=== PATIENT | male | born 2005 | race Caucasian/White ===

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

== ENCOUNTER 2025-04-12 15:27 | Emergency (ER) | payer MEDICAID ==
[~2025-04-12] VITALS: Ht 165.1 cm; Wt 43.2 kg
[2025-04-12 15:29] VITALS: BP 128/93
--- NOTE | 2025-04-12 15:38 | Physician Documentation ---
History of Present Illness ~ Chief Complaint: Medical Clearance Stated Complaint: MED CLEARANCE Time Seen by MD: 15:30 Source: patient Mode of Arrival: POV Exam Limitations: no limitations HPI 19 y/o male BIB police for clearance for [facility]. Patient was arrested due to hitting drive through at [employer]. Minimal damage but [employer] report due to suspected DUI it is required for medical clearance prior to going to [facility]. Patient is lying on gurney in handcuffs and his upper body is jerking along with his legs, almost hitting one of the officers while the officer was asking him questions. Patient states he is in the middle of "seizing" due to "epilepsy." Patient is conscious and communicating while having his seizure. Patient denies chest pain, SOB, abdominal pain. Tetanus within 5 years?: No Medication Reconciliation Allergies: Coded Allergies: No Known Allergies (Unverified , 12/31/22) Scheduled Famotidine (Pepcid), 1 TAB PO Q12H Past Medical History Past Medical History: No Pertinent History, Anxiety Past Surgical History: no surgical history Alcohol Use: Heavy Lives with: Family Lives In: Home Occupation: employed Review of Systems All Other Systems at this time: Reviewed and Negative Physical Exam Vital Signs: Heart Rate: 148, Respiratory Rate: 17, BP: 128/93, Pulse Oximetry: 96, Weight: 43.180 Oxygen Flow Rate: 0 Physical Exam GENERAL: Alert, no acute distress. HEENT: NCAT, EOMI, PERRL, normal oropharynx, moist oral mucosa. NECK: Supple, trachea midline. CARDIAC: Regular rhythm, elevated rate, no murmurs, rubs, or gallops. Equal distal pulses. No lower extremity edema, cap refill less than 2 seconds. RESPIRATORY: Equal breath sounds, clear to auscultation bilaterally, no respiratory distress. GASTROINTESTINAL: Non distended, soft, nontender, No guarding or rebound. MUSCULOSKELETAL: Normal range of motion, nontender, no swelling. Normal gait. NEUROLOGICAL: Awake, alert, and oriented x 3. Patient is talkative throughout exam in talking while he is saying that he is seizing. His upper body and legs are jerking. Patient almost hit one of the officers with his leg when he was jerking on the gurney. SKIN: Warm/dry, no pallor, no rash. PSYCH: Alert and appropriate. Affect congruent with mood. Speech is clear. Good eye contact. Progress Results/Orders Results/Orders Vital Signs 04/12/25 04/12/25 15:29 15:39 Pulse 148 120 Resp 17 18 B/P (MAP) 128/93 Pulse Ox 96 98 O2 Flow Rate 0 0 Medical Decision Making Differential Dx:Considerations: Include: Intoxication-Alcohol, Intoxication- Other drug, Personality disorder, Substance abuse disorder, Acute delirium, Closed head injury, Cervical spine injury, Skull fracture, Fracture(s), Abrasion, Contusion, Foreign body, Hematoma, Laceration, Alcohol withdrawl syndrom, Encephalopathy, Hepatitis, Medically stable Departure Time of Disposition: 15:38 Disposition: 01 HOME / SELF CARE / HOMELESS Impression: Primary Impression: Medical clearance for incarceration Condition: Stable Discharge Instructions: Medical Screening Exam Additional Instructions: PATIENT HAS BEEN EVALUATED AND IS MEDICALLY CLEARED FOR ALF Referrals: NO PRIMARY CARE PROVIDER (PCP) Education Educated: Patient Educated regarding: diagnosis, treatment, need for follow up Signature Scribe Signature: x Attestation: SVETLANA Pulido April 12, 2025 15:38
[2025-04-12 15:39] VITALS: PULSE 120; RESP 18; O2SAT 98
== END 2025-04-12 15:48 | disposition home or self-care (01) ==
LOC: EEVIPCON 15:28 → ER 15:28
DX: Z02.89 Encounter for other administrative examinations (principal); G40.909 Epilepsy, unspecified, not intractable, without status epilepticus; Z79.899 Other long term (current) drug therapy
CPT/HCPCS: 99283

== ENCOUNTER 2025-04-12 17:45 | Inpatient (IN) | payer MEDICAID ==
[~2025-04-12] VITALS: Ht 172.7 cm; Wt 43.0 kg
[2025-04-12] MEDS: naloxone 2mg/2ml inj IV STA (17:57)
--- NOTE | 2025-04-12 18:32 | RADIOLOGY REPORT ---
CHEST RADIOGRAPH Indication: aloc Technique: Single frontal view of the chest was obtained Comparison: None FINDINGS: Lines and Tubes: None Lungs: No focal consolidation. Pleura: No effusion. No pneumothorax. Cardiomediastinal contours: Unremarkable Bones: No acute osseous abnormality. IMPRESSION: 1. No acute cardiopulmonary disease.
[2025-04-12] MEDS: normal saline 1000ML IV soln IVB ONE ×2 (18:35→18:36)
[2025-04-12 18:56] LABS: BASOPHILS # (AUTO) 0.1 X10'3 (0-0.2); BASOPHILS % (AUTO) 0.6 % (0-1); EOSINOPHILS % (AUTO) 0.4 % (0-6); HEMATOCRIT 28.7 % (42.0-52.0); HEMOGLOBIN 9.9 g/dl (14.0-17.9); LYMPHOCYTES # (AUTO) 2.6 X10'3 (1.1-4.8); LYMPHOCYTES % (AUTO) 24.4 % (21-51); MEAN CORPUSCULAR HEMOGLOBIN 30.4 PG (27.0-31.0); MEAN CORPUSCULAR HGB CONC 34.6 g/dL (33.0-36.5); MEAN CORPUSCULAR VOLUME 87.7 FL (78-98); MEAN PLATELET VOLUME 7.6 FL (7.4-10.4); MONOCYTES # (AUTO) 0.6 X10'3 (0-0.9); NEUTROPHILS # (AUTO) 7.2 X10'3 (1.8-7.7); NEUTROPHILS % (AUTO) 68.6 % (42-75); PLATELET COUNT 239 X10'3 (140-440); RED BLOOD COUNT 3.27 X10'6 (4.70-6.10); WHITE BLOOD COUNT 10.5 X10'3 (4.5-11.0)
[2025-04-12 19:06] LABS: ALBUMIN 1.9 G/DL (3.4-5.0); ANION GAP 12 (8-16); BLOOD UREA NITROGEN 14 MG/DL (7-18); BUN/CREATININE RATIO 24.1 (10.0-20.0); CHLORIDE 121 MMOL/L (99-107); CREATININE 0.58 MG/DL (0.60-1.10); GLUCOSE 62 MG/DL (70-104); SODIUM 150 MMOL/L (135-145); eCRCL 124 ML/MIN; eGFR > 90 ML/MIN
[2025-04-12 19:17] LABS: ETHANOL < 10 MG/DL (<10)
[2025-04-12 19:19] LABS: CALCIUM 5.3 MG/DL (8.5-10.1); POTASSIUM 1.8 MMOL/L (3.5-5.1)
--- NOTE | 2025-04-12 19:23 | ELECTROCARDIOGRAPH REPORT ---
[facility] Test Date: 2025-04-12 Test Time: 17:50:28 Pat Name: DOMENICO SANDERS Department: EMERGENCY ROOM Patient ID: [id number] Room: ED 4 Gender: M Health Specialist: PARISH : 2005 Requested By: SVETLANA SHEPPARD Order Number: [id number] Reading MD: Dr. Oliverio Workman Measurements Intervals [place] Rate: 106 P: 83 RI: 94 QRS: 62 QRSD: 79 T: 68 QT: 321 QTc: 427 Interpretive Statements Sinus tachycardia RSR' in V1 or V2, probably normal variant Electronically Signed On 04-12-2025 21:01:[address] Oliverio Workman Please click the below link to view image of tracing.
--- NOTE | 2025-04-12 19:48 | Physician Documentation ---
History of Present Illness ~ Chief Complaint: Overdose Stated Complaint: ALTERED Time Seen by MD: 17:50 OK to notify your PCP?: Yes Primary Medical Doctor: NONE Source: police, EMS Mode of Arrival: EMS Exam Limitations: clinical condition HPI 19-year-old male who was brought in by EMS from the longterm after being cleared here just about 2 hours ago. Patient arrived at the longterm and was reportedly giving officers a "hard time" and the nurse from the longterm ended up giving Valium 10 mg po. Shortly after giving the patient Valium 10 mg p.o. the patient became unresponsive only to sternal rub. Patient is breathing on his own but unable to provide history. Officers where told by nurse at longterm that patient told the nurse at the longterm that he had 13 or 23 pills of gabapentin. Officers state they doubt this is the case because there where no pill bottles in the car. Patient was also extremely agitated when officers brought him in a few hours ago along with being tachycardic at 120 but when arrived to the longterm it was reportedly 171 per triage nurse from the longterm. Medication Reconciliation Allergies: Coded Allergies: No Known Allergies (Unverified , 12/31/22) Scheduled Famotidine (Pepcid), 1 TAB PO Q12H Past Medical History Past Medical History: No Pertinent History, Anxiety Past Surgical History: no surgical history Alcohol Use: Heavy Lives with: Family Lives In: Home Occupation: employed Review of Systems All Other Systems at this time: Reviewed and Negative Physical Exam Vital Signs: Temperature: 97.8, Source: Temporal, Heart Rate: 103, Respiratory Rate: 14, BP: 107/59, Pulse Oximetry: 99, Weight: 43.100 Oxygen Flow Rate: 0 Physical Exam GENERAL: NONRESPONSIVE BUT BREATHING ON HIS OWN HEENT: NCAT, PINPOINT PUPILS, normal oropharynx, DRY oral mucosa. NECK: Supple, trachea midline. CARDIAC: Regular rhythm, ELEVATED RATE, no murmurs, rubs, or gallops. PV: Equal distal pulses. No lower extremity edema, cap refill less than 2 seconds. RESPIRATORY: Equal breath sounds, clear to auscultation bilaterally, no respiratory distress. GASTROINTESTINAL: Non distended, soft, nontender, No guarding or rebound. MUSCULOSKELETAL: ABRASION ON CHEST/STERNUM FROM STERNUM RUB REPORTEDLY DONE AT [facility], Normal range of motion, nontender, no swelling. Normal gait. NEUROLOGICAL: ONLY AROUSABLE TO STERNAL RUB. SKIN: Warm/dry, no pallor, no rash. PSYCH: UNABLE TO ASSESS. Progress Progress Note The very real possibility of a deterioration of this patient's condition required the highest level of my preparedness for sudden, emergent intervention. I provided critical care services, which included medication orders, frequent reevaluations of the patient's condition and response to treatment, ordering and reviewing test results, and discussing the case with various consultants. Excludes time spent performing separately billable procedures. The critical care time associated with the care of the patient was: 30minutes. Results/Orders Results/Orders Orders - ROSARIO SHEPPARD Chest,Single View (04/12/25 18:05) Ethanol (04/12/25 18:05) Drug Screen, Urine (04/12/25 18:05) BMP (04/12/25 18:05) CAION (04/12/25 19:21) Magnesium Sulf-Water 2g/50ml (Magnesium (04/12/25 19:25) Observation Status Start (04/12/25 19:23) Potassium Cl 40meq/1/2ns 520ml ([place] (04/12/25 19:25) Observation Status Start (04/12/25 19:23) * Blood Glucose Assessment * ACHS (04/12/25 19:56) CK (04/12/25 18:25) Liver Panel (04/12/25 18:25) MG (04/12/25 18:25) General Nursing Order (04/12/25 20:01) Completed Orders - ROSARIO SHEPPARD Normal Saline 1000ml (Sodium Chloride 10 (04/12/25 17:50) Naloxone 2mg/2ml Inj (Narcan 2mg/2ml Inj (04/12/25 17:52) Cbc/Diff (04/12/25 18:05) Chest,Single View (04/12/25 18:05) Normal Saline 1000ml (Sodium Chloride 10 (04/12/25 18:05) Stat Ekg (04/12/25 19:21) Medications Received in ER Medications (Trade) Dose Ordered Sig/Tisha Route PRN Reason Start Time Stop Time Status Last Admin Dose Admin (sodium chloride 1000ml IV soln) 1,000 ml ONCE ONCE IVB 5/23/25 17:50 04/12/25 17:51 DC 04/12/25 18:35 1,000 ML (Narcan 2mg/2ml inj) 2 mg ONCE STAT IV 04/12/25 17:52 04/12/25 17:55 DC 04/12/25 17:57 2 MG (sodium chloride 1000ml IV soln) 1,000 ml ONCE ONCE IVB 04/12/25 18:05 04/12/25 18:11 DC 04/12/25 18:36 1,000 ML Potassium Chloride 520 ml @ 130 mls/hr ONCE ONCE IV 04/12/25 19:25 04/12/25 23:24 04/12/25 19:53 130 MLS/HR Vital Signs 04/12/25 04/12/25 04/12/25 17:49 18:00 18:11 Temp 97.8 Pulse 107 103 Resp 17 14 B/P (MAP) 97/58 107/59 (75) Pulse Ox 97 99 O2 Flow Rate 0 0 Laboratory Tests Test 04/12/25 18:25 04/12/25 19:47 White Blood Count 10.5 Red Blood Count 3.27 L Hemoglobin 9.9 L Hematocrit 28.7 L Mean Corpuscular Volume 87.7 Mean Corpuscular Hemoglobin 30.4 Mean Corpuscular Hemoglobin Concent 34.6 Red Cell Distribution Width 15.0 H Platelet Count 239 Mean Platelet Volume 7.6 Neutrophils (%) (Auto) 68.6 Lymphocytes (%) (Auto) 24.4 Monocytes (%) (Auto) 6.0 Eosinophils (%) (Auto) 0.4 Basophils (%) (Auto) 0.6 Neutrophils # (Auto) 7.2 Lymphocytes # (Auto) 2.6 Monocytes # (Auto) 0.6 Eosinophils # (Auto) 0.0 Basophils # (Auto) 0.1 CBC Comment Sodium Level 150 H Potassium Level 1.8 *L Chloride Level 121 H Carbon Dioxide Level 17.0 L Anion Gap 12 Blood Urea Nitrogen 14 Creatinine 0.58 L Estimated GFR/1.73 m2 > 90 BUN/Creatinine Ratio 24.1 H Glucose Level 62 L Calcium Level 5.3 *L Albumin 1.9 L Chemistry Comments Ethyl Alcohol Level < 10 Drug Screen Comment Medical Decision Making Differential Dx:Considerations: Include: Alcohol abuse, Anxiety, Bipolar disorder, Conversion disorder, Delirium, Depression, Drug Overdose-Accidental, Drug Overdose-Intentional, Encephalopathy, Hallucinations, Homicidal, Liver failure, Panic disorder, Personality disorder, Renal failure, Respiratory failure, Schizophrenia, Substance abuse, Suicidal attempt, Suidical gesture Additional Comment EKG DID NOT SHOW ANY U WAVES OR QT PROLONGATION WORKING CURRENT DIFFERENTIAL IS OVERDOSE FROM GABAPENTIN WHICH PUT PATIENT INTO RHABDOMYOLYSIS AND THE HYPOKALEMIA IS A RESULT OF THIS. PATIENT IS PROTECTING HIS AIRWAY, OXYGEN SATRUATION REMAINING IN THE 90'S ON 2LITERS [place] Departure Admitted to Inpatient Unit: to hospitalist Impression: Primary Impression: Altered level of consciousness Additional Impressions: Hypokalemia Gabapentin overdose Qualified Codes: T42.6X4A - Poisoning by other antiepileptic and sedative- hypnotic drugs, undetermined, initial encounter Hypocalcemia Tachycardia Condition: Fair Referrals: NO PRIMARY CARE PROVIDER (PCP) Education Educated regarding: diagnosis, treatment, need for follow up Signature Scribe Signature: x Attestation: The note accurately reflects work and decisions made by me.Rosario MOORE 04/12/25 19:58 handed off to my supervising MD at 20:00 ROSARIO SHEPPARD April 12, 2025 19:48
[2025-04-12] MEDS: potassium Cl 40MEQ/1/2NS 520ml 520 ML IV ONE (19:53)
[2025-04-12 20:11] LABS: BILIRUBIN,DIRECT 0.2 MG/DL (0-0.3); BILIRUBIN,TOTAL 0.5 MG/DL (0.1-1.0); CREATINE KINASE 232 U/L (39-308); TOTAL PROTEIN 3.8 G/DL (6.4-8.2)
[2025-04-12 20:12] LABS: ALANINE AMINOTRANSFERASE 15 U/L (12-78); ALKALINE PHOSPHATASE 42 IU/L (20-180); ASPARTATE AMINO TRANSFERASE 20 U/L (10-37)
[2025-04-12] MEDS: magnesium sulf-water 2g/50mL 50 ML IV SCH (20:13)
[2025-04-12 20:15] LABS: URINE AMPHETAMINE SCREEN POSITIVE (Neg); URINE BARBITUATE SCREEN NEGATIVE (Neg); URINE BENZODIAZEPINES SCREEN POSITIVE (Neg); URINE CANNABINOID SCREEN POSITIVE (Neg); URINE COCAINE SCREEN POSITIVE (Neg); URINE METHADONE SCREEN NEGATIVE (Neg); URINE OPIATE SCREEN NEGATIVE (Neg); URINE PHENCYCLIDINE SCREEN NEGATIVE (Neg)
[2025-04-12 20:22] LABS: MAGNESIUM 0.8 MG/DL (1.5-2.4)
[2025-04-12] MEDS ORDERED: potassium Cl 20 mEq SR tablet PO PRN ×2 (20:35)
[2025-04-12] MEDS ORDERED: magnesium hydroxide 30ml (MOM) UD suspension PO PRN (20:35)
[2025-04-12] MEDS ORDERED: albuterol 2.5 MG/3 ML nebule NEB PRN (20:35)
[2025-04-12] MEDS ORDERED: mag hydrox/Alum hydrox/simeth 30ml oral suspension PO PRN (20:35)
[2025-04-12] MEDS ORDERED: ondansetron/PF 4mg/2ml inj IV PRN (20:35)
[2025-04-12] MEDS ORDERED: acetaminophen 325mg tablet PO PRN (20:35)
[2025-04-12] MEDS ORDERED: metoclopramide 5 mg/ml inj IV PRN (20:35)
[2025-04-12] MEDS ORDERED: bisacodyl 10mg suppository rectal RC PRN (20:35)
[2025-04-12] MEDS ORDERED: magnesium sulf-water 2g/50mL 50 ML IV PRN (20:35)
[2025-04-12] MEDS ORDERED: potassium Cl 40MEQ/1/2NS 520ml 520 ML IV PRN (20:35)
--- NOTE | 2025-04-12 21:08 | HISTORY AND PHYSICAL-Residence ---
History & Physical Providers to CC Resident Creating Document: COLUMBA AJ, RES ~ History of Present Illness Primary Medical Doctor: NONE Reason for Admit\\Complaint: altered level of consciouness History of Present Illness This is a 19-year-old male with history of methamphetamine abuse, cocaine abuse, was brought to the ED by D after a suspected drug overdose. Patient was recently in the ED for medical clearance and was transferred to the [employer] this evening. Shortly after the transfer he was non cooperative with the police, agitated and was given Valium by the nurse at the custodial. He received 10 mg of diazepam after which he became unresponsive. He was responsive to sternal rub and was brought to the ED for further evaluation. According to his girlfriend, he took about 30 gabapentin pills earlier, however there was no confirmation about the intake. He has a history of methamphetamine and cocaine abuse due to which his blood pressures were high and diazepam was given to calm his agitation. Further history could not be obtained due to patient's altered level of consciousness. Most of the history was obtained from the ED physician and [employer] report. On arrival to the ED he was hypotensive, tachycardic, unresponsive but was able to protect his airway. He was requiring 2 L of oxygen through nasal cannula and was saturating above 90%. On examination he also had pinpoint pupils and was given Narcan on 2 L of fluid bolus. CMP showed severe hypokalemia and hypomagnesemia without any EKG changes. Serial EKGs did not show any findings. Poison control was contacted who did not give any additional recommendations to the current management. Update 11:30 p.m.: Patient was awake and very agitated, trying to get out bed and leave. He was moving all of his extremities violently. Trying to pull all his lines, restraints were placed without much use. He was trying to grab the hands of nursing staff and get hold of nursing staff, 5 mg IM Haldol was given to calm him. ABG showed pH of 7.1 and pCO2 of 60. Started on breathing treatments however patient was very uncooperative."He was saying it is illegal to keep him in the hospital and he would rather kill himself" Allergies: Coded Allergies: No Known Allergies (Unverified , 12/31/22) Home Medications Home Medications Active Pepcid (Famotidine) 20 Mg Tablet 1 Tab PO Q12H 10 Days Past Medical History Past Medical History none Past Surgical History Surgical History Comment none Past Social History Social History Comment unable to obtain. History of Methamphetamine abuse according to [employer] Alcohol Use: Heavy Drug Use: Methamphetamine Lives with: Family Lives In: Home Occupation: employed ROS All Other Systems: Reviewed and Negative ROS unable to obtain Exam Vitals: Vital Signs Date Time Temp Pulse Resp B/P (MAP) Pulse Ox O2 Delivery O2 Flow Rate FiO2 04/12/25 18:11 04/12/25 18:00 103 14 99 0 04/12/25 17:49 97.8 General: GENERAL: NONRESPONSIVE BUT BREATHING ON HIS OWN, on 2 L oxygen through nasal cannula HEENT: NCAT, PINPOINT PUPILS, normal oropharynx, DRY oral mucosa. NECK: Supple, trachea midline. CARDIAC: Regular rhythm, ELEVATED RATE, no murmurs, rubs, or gallops. PV: Equal distal pulses. No lower extremity edema, cap refill less than 2 seconds. RESPIRATORY: Equal breath sounds, mild wheezing bilaterally, mild respiratory distress. GASTROINTESTINAL: Non distended, soft, nontender, No guarding or rebound. MUSCULOSKELETAL: ABRASION ON CHEST/STERNUM FROM STERNUM RUB REPORTEDLY DONE AT [facility], Normal range of motion, nontender, no swelling. Normal gait. NEUROLOGICAL: ONLY AROUSABLE TO STERNAL RUB. SKIN: Warm/dry, no pallor, no rash. PSYCH: UNABLE TO ASSESS. Diagnostic Data Last Recorded Lab Results: 04/12/25182404/12/251824 Advance Care Planning Advanced Care plannin - 30 Minutes (Patient has altered level of consciousness. We will re-obtain the code status once he was mentally clear. We will treat him as a full code for now.) Additional Plan Altered level of consciousness Acute psychosis Hypoglycemia, improved methamphetamine abuse Cocaine abuse Benzodiazepine toxicity Respiratory acidosis Patient was tachycardic, hypotensive but hemodynamically stable. EKG shows sinus rhythm with no acute abnormalities. Patient is saturating at 92% on 2 L of oxygen. Blood sugar on admission was in the 60s followed by 90s after awhile. One dose of D50 given. Recheck blood sugar in the a.m. Poison control was contacted with no additional recommendations. NPO till he passes swallow test. No indication for intubation as he was able to protect his airway. Ordered serum salicylate, acetaminophen, gabapentin levels. Serum salicylate and acetaminophen, ethyl alcohol are within normal limits. Follow up with gabapentin levels. Patient received one dose of Narcan, 2 L NS bolus of fluids in the ED. UA shows positive amphetamines, cocaine, benzos, cannabinoids. ABG shows a pH of 7.1, pCO2 of 60 and a normal bicarbonate level. RT paged. Breathing treatments with Albuterol q.2h p.r.n. ordered. Patient has no history of COPD, the respiratory acidosis is likely secondary to substance abuse and benzodiazepine toxicity. CT head shows no acute intracranial abnormalities. Blood sugars are within normal limits. Troponin within normal limits Chest x-ray shows no acute changes. Patient agitation can likely be secondary to substance withdrawal. Ordered IM Haldol 5 mg p.r.n. for severe agitation. Electrolyte abnormalities Hypokalemia Hypomagnesemia Hypocalcemia Hypernatremia Hyperchloremia Hypocalcemia CMP she was critically low potassium of 1.8 and magnesium of 0.8. Started on replacement protocol. However EKG does not show any U waves or QT prolongation. Patient has a serum calcium level of 5.3 however ionized calcium is within normal limits and corrected calcium with albumin is 7. Started on IV calcium chloride 1 g daily. Monitor electrolytes q.4 hours. Patient also has increased serum myoglobin and he is currently on LR at 150 mL/hour. Avoid NS in the view of hyponatremia and hypochloremia. Serum uric acid, TSH, lactic acid, procalcitonin, ESR CRP levels pending. Serum creatinine kinase is within normal limits. Hypoalbuminemia Normocytic normochromic anemia Albumin is 1.9 and hemoglobin is 9.9. There is no evidence of external bleeding. Likely secondary to hemodilution with IV fluids. Iron studies and FOBT ordered. Follow up. Ensure enlive t.i.d. after passing swallowing test Asymptomatic bacteriuria versus UTI Patient is not able to provide history about urinary symptoms. Patient has 5-10 urine WBC, no leukocyte esterase or nitrite positive. Have not started on antibiotics yet. Reassess in the a.m. for UTI symptoms Code Status: Full code, reassess when mentally clear DVT Prophylaxis: Heparin Analgesia/Sedation: None Lines/Tubes: PIV Gi Prophylaxis: None Nutrition: NPO till passing swallow eval, regular diet thereafter PT: Yes Prognosis: Guarded Disposition: Admit to PCU with telemetry monitoring. Recheck electrolytes q.4 hours Columba Roblero MD Internal Medicine Resident PGY-1 Patient evaluated using HIPPA complaint AV device Agree with plan as discussed with resident Blanca Coombs MD Date of Service: April 12, 2025 Billing Provider: BLANCA COOMBS MD,COLUMBA ROBLERO, RES April 12, 2025 21:08 BLANCA COOMBS MD April 13, 2025 04:33
--- NOTE | 2025-04-12 21:16 | ELECTROCARDIOGRAPH REPORT ---
[facility] Test Date: 2025-04-12 Test Time: 21:14:04 Pat Name: DOMENICO SANDERS Department: ED HOLD Room: ED 4 Gender: M [employer]line Managerial Supervisor: : 2005 Requested By: COLUMBA AJ Order Number: [id number] Reading MD: Measurements Intervals [place] Rate: 91 P: 74 [place]: 102 QRS: 62 QRSD: 98 T: 69 QT: 360 QTc: 443 Interpretive Statements Sinus rhythm Short [place] interval RSR' in V1 or V2, probably normal variant Please click the below link to view image of tracing.
[2025-04-12 21:20] LABS: BILIRUBIN,URINE NEGATIVE (Neg); CLARITY,URINE CLEAR (Clear); COLOR,URINE YELLOW (Yellow); GLUCOSE, URINE NEGATIVE (Neg); KETONES,URINE TRACE mg/dl (Neg); LEUKOCYTE ESTERASE ,URINE NEGATIVE (Neg); NITRITES, URINE NEGATIVE (Neg); OCCULT BLOOD,URINE NEGATIVE (Neg); PROTEIN,URINE TRACE mg/dl (Neg); UA COLLECTION TYPE STRAIGHT CATH; UROBILINOGEN,URINE 0.2 E.U/dL (0.2-1.0)
[2025-04-12 21:29] LABS: BACTERIA,URINE NONE SEEN /HPF (Neg); MUCUS STRANDS FEW /LPF (Neg); RBC,URINE NONE SEEN /HPF (0-2); SQUAMOUS EPITHELIAL CELL,UR FEW /LPF (FEW)
[2025-04-12 21:40] LABS: ACETAMINOPHEN 7.3 UG/ML (10-30); PHOSPHORUS 3.1 MG/DL (2.3-4.5); URIC ACID 3.7 MG/DL (3.5-7.2)
[2025-04-12 21:53] LABS: APTT 28 SECONDS (22-32); INR 1.1 INR; PROTHROMBIN TIME 11.4 SECONDS (9.0-12.0)
--- NOTE | 2025-04-12 22:23 | RADIOLOGY REPORT ---
EXAM: CT CT HEAD INDICATION: Unresponsive EXAM DATE: 04/12/2025 09:02 PM COMPARISON: None TECHNIQUE: CT of the head without intravenous contrast. Radiation Dose Information: CTDI volume is 52.04 mGy. Dose-length product is 852.05 mGy*cm FINDINGS: There is no evidence of acute intracranial hemorrhage, extra-axial collection, mass effect, midline s hift, herniation or hydrocephalus. The ventricles, sulci and cisterns are age appropriate. The lebron-w chhaya differentiation is intact. The visualized paranasal sinuses and mastoid air cells are clear. The surrounding soft tissues and osseous structures are unremarkable. IMPRESSION: 1. No evidence of acute intracranial hemorrhage, mass effect or hydrocephalus.
[2025-04-12] MEDS: ringers solution, lacted 1,000 ML IV SCH (22:26)
[2025-04-12] MEDS: dextrose 50%-water 50ml dispensing syringe IV ONE (23:40)
[2025-04-12] MEDS: haloperidol lactate 5mg/ml inj IM ONE (23:49)
[2025-04-12 23:55] LABS: ALANINE AMINOTRANSFERASE 24 U/L (12-78); ALBUMIN 3.2 G/DL (3.4-5.0); ALKALINE PHOSPHATASE 69 IU/L (20-180); ANION GAP 5 (8-16); BILIRUBIN,TOTAL 0.9 MG/DL (0.1-1.0); BLOOD UREA NITROGEN 18 MG/DL (7-18); BUN/CREATININE RATIO 18.6 (10.0-20.0); CHLORIDE 109 MMOL/L (99-107); CREATININE 0.97 MG/DL (0.60-1.10); GLUCOSE 103 MG/DL (70-104); SODIUM 141 MMOL/L (135-145); TOTAL CARBON DIOXIDE 26.9 MMOL/L (24-32); TOTAL PROTEIN 6.4 G/DL (6.4-8.2); eCRCL 74 ML/MIN; eGFR > 90 ML/MIN
[2025-04-13] VITALS (7 sets, daily range): BP systolic 95–114; BP diastolic 65–83; PULSE 76–116; RESP 15–22; TEMP 97.1–98.8; O2SAT 96–100
[2025-04-13 00:16] LABS: ASPARTATE AMINO TRANSFERASE 38 U/L (10-37); CALCIUM 8.6 MG/DL (8.5-10.1); POTASSIUM 5.3 MMOL/L (3.5-5.1)
[2025-04-13] MEDS: calcium chloride 100 MG/1 ML inj IV ONE (00:20)
[2025-04-13] MEDS: haloperidol lactate 5mg/ml inj IM ONE (00:33)
[2025-04-13 00:51] LABS: ALANINE AMINOTRANSFERASE 28 U/L (12-78); ALBUMIN 3.7 G/DL (3.4-5.0); ALBUMIN/GLOBULIN RATIO 1.1 (1.1-1.5); ALKALINE PHOSPHATASE 80 IU/L (20-180); ANION GAP 15 (8-16); ASPARTATE AMINO TRANSFERASE 30 U/L (10-37); BILIRUBIN,TOTAL 0.9 MG/DL (0.1-1.0); BLOOD UREA NITROGEN 18 MG/DL (7-18); BUN/CREATININE RATIO 14.9 (10.0-20.0); C-REACTIVE PROTEIN 0.85 MG/DL (0.0-0.5); CHLORIDE 107 MMOL/L (99-107); CREATININE 1.21 MG/DL (0.60-1.10); FERRITIN 135 NG/ML (26-388); GLUCOSE 119 MG/DL (70-104); MAGNESIUM 3.1 MG/DL (1.5-2.4); POTASSIUM 4.5 MMOL/L (3.5-5.1); SODIUM 143 MMOL/L (135-145); TOTAL CARBON DIOXIDE 21.5 MMOL/L (24-32); TOTAL PROTEIN 7.1 G/DL (6.4-8.2); eCRCL 59 ML/MIN; eGFR 76 ML/MIN
[2025-04-13 01:06] LABS: % IRON SATURATION 34 % (11-46); IRON 89 UG/DL (53-167); TOTAL IRON BINDING CAPACITY 264 UG/DL (259-388)
[2025-04-13 02:27] LABS: BASOPHILS # (AUTO) 0.1 X10'3 (0-0.2); BASOPHILS % (AUTO) 0.7 % (0-1); EOSINOPHILS # (AUTO) 0.2 X10'3 (0-0.9); EOSINOPHILS % (AUTO) 1.6 % (0-6); HEMATOCRIT 36.9 % (42.0-52.0); HEMOGLOBIN 12.6 g/dl (14.0-17.9); LYMPHOCYTES # (AUTO) 2.9 X10'3 (1.1-4.8); LYMPHOCYTES % (AUTO) 25.1 % (21-51); MEAN CORPUSCULAR HEMOGLOBIN 29.8 PG (27.0-31.0); MEAN CORPUSCULAR HGB CONC 34.2 g/dL (33.0-36.5); MEAN CORPUSCULAR VOLUME 87.2 FL (78-98); MEAN PLATELET VOLUME 8.2 FL (7.4-10.4); MONOCYTES # (AUTO) 0.7 X10'3 (0-0.9); MONOCYTES % (AUTO) 6.2 % (2-12); NEUTROPHILS # (AUTO) 7.6 X10'3 (1.8-7.7); NEUTROPHILS % (AUTO) 66.4 % (42-75); PLATELET COUNT 275 X10'3 (140-440); RED BLOOD COUNT 4.24 X10'6 (4.70-6.10); RED CELL DISTRIBUTION WIDTH 15.7 % (11.5-14.5); WHITE BLOOD COUNT 11.4 X10'3 (4.5-11.0)
[2025-04-13] MEDS: haloperidol lactate 5mg/ml inj IM PRN (04:24)
[2025-04-13] MEDS ORDERED: LORazepam 2 mg/ml vial IV PRN ×2 (07:55→08:00)
[2025-04-13] MEDS: lactose-reduced food (Ensure Enlive) - 237ml bottle PO SCH (08:00)
[2025-04-13] MEDS: K and/or MAG REPLACEMENT MC SCH (08:00)
[2025-04-13] MEDS ORDERED: thiamine 100mg/ml 2ml inj. IV SCH (08:00)
[2025-04-13] MEDS: docusate sod 100mg capsule PO SCH (08:00)
[2025-04-13] MEDS ORDERED: folic acid 1mg/0.2ml inj IV SCH (08:00)
[2025-04-13] MEDS: calcium chloride 1,000 MG in NS 100ml IV soln (110ml) IV SCH (08:00)
[2025-04-13] MEDS ORDERED: glucagon, human recombinant 1mg kit SUBCUT PRN (08:10)
[2025-04-13] MEDS ORDERED: DEXTROSE 15 GM of carb/4 tabs (each vial/BOTTLE has 4 tablets) PO PRN ×2 (08:10)
[2025-04-13] MEDS ORDERED: dextrose 50%-water 50ml dispensing syringe IV PRN (08:10)
[2025-04-13] MEDS: dextrose 50%-water 50ml dispensing syringe IV PRN (08:40)
[2025-04-13] MEDS: thiamine 100mg/ml 2ml inj. IV SCH (09:48)
[2025-04-13] MEDS: folic acid 1mg/0.2ml inj IV SCH (09:48)
[2025-04-13] MEDS: heparin, porcine 5000 units/ml vial SQ SCH (09:48)
[2025-04-13 14:19] LABS: ALANINE AMINOTRANSFERASE 29 U/L (12-78); ALBUMIN 3.2 G/DL (3.4-5.0); ALBUMIN/GLOBULIN RATIO 1.1 (1.1-1.5); ALKALINE PHOSPHATASE 70 IU/L (20-180); ANION GAP 9 (8-16); BILIRUBIN,TOTAL 1.5 MG/DL (0.1-1.0); BLOOD UREA NITROGEN 13 MG/DL (7-18); BUN/CREATININE RATIO 18.3 (10.0-20.0); CALCIUM 9.2 MG/DL (8.5-10.1); CHLORIDE 105 MMOL/L (99-107); CREATININE 0.71 MG/DL (0.60-1.10); GLUCOSE 123 MG/DL (70-104); SODIUM 142 MMOL/L (135-145); TOTAL CARBON DIOXIDE 28.2 MMOL/L (24-32); TOTAL PROTEIN 6.2 G/DL (6.4-8.2); eCRCL 101 ML/MIN; eGFR > 90 ML/MIN
[2025-04-13 14:26] LABS: ASPARTATE AMINO TRANSFERASE 56 U/L (10-37); POTASSIUM 4.5 MMOL/L (3.5-5.1)
--- NOTE | 2025-04-13 15:20 | PROGRESS NOTE- Residence ---
Progress Note - Resident Providers to CC Resident Creating Document: KATHRYN DAVILA RES ~ Antibiotic Timeout Antibiotic Ordered?: No Subjective Patient was sleeping deeply under restrain order after received haloperidol injection from ER this morning. Patient's family endorsed that patient was not on the drugs but after his girlfriend who is drug addicts made him this condition. Pt's health care profile was confidential to the family members now. Pt did not have any bleeding from anywhere except for the nose bleeding. Objective Vital Signs Date Time Temp Pulse Resp B/P (MAP) Pulse Ox O2 Delivery O2 Flow Rate FiO2 04/13/25 07:11 68 04/13/25 05:10 14 92/66 (75) 100 2.0 04/12/25 17:49 97.8 Result Diagram: 04/13/25 0159 04/13/25 1327 Vitals were stable at the moment with CO 82/minute, RR 14/minute, BP 92/66 mm Hg, pulse oximetry 100% on 2 L/min NC. On examination, General: Well alert, well oriented, not confused, not agitated but irritative by movement, complaining about the generalized body pain, not in acute distress, well cooperated during the physical. HEENT: Conjunctive are pink, sclerae clear, no icterus, pupil is equal in both sides but small, reactive to light, no ear discharge, no pharyngeal erythema or an edema, mouth and lips are moist. Neck: Supple, no JVD, no lymphadenopathy and thyromegaly. Lungs:Equal air entry on both lungs, no additional sounds Heart: S1-S2 regular sinus rhythm and, regular rate, no gallops, no rubs, no murmurs Abdomen: No visible peristalsis, Bowel sounds present on auscultation, soft, nontender, no guarding, no rigidity Extremities: No obvious deformities, no pitting edema bilaterally, capillary refill intact, able to wiggle toes both sides, peripheral pulsations are intact on both sides PROPULSION MACHINERY SERVICE ENGINEER: Could not assess proper neurological exam since the patient was sleeping deeply, but arousable and awake on stimuli, could move all 4 extremities Musculoskeletal: ABRASION ON CHEST/STERNUM FROM STERNUM RUB REPORTEDLY DONE [facility], No joint swelling, deformities, inflammations, and no scoliosis and back tenderness Skin: No active skin lesions and rashes Coagulation Studies Laboratory Tests Test 04/12/25 21:24 Prothrombin Time 11.4 SECONDS (9.0-12.0) INR International Normalized Ratio 1.1 INR Activated Partial Thromboplast Time 28 SECONDS (22-32) Coagulation Comments Assessment Assessment A 19-year-old male with a past medical history of polysubstance abuse including methamphetamine and cocaine, benzodiazepine, cannabinoids who was brought to ED by our PT after a suspected drug overdose with gabapentin as per his girlfriend. Patient was recently visited to ER for medical clearance and was transferred to D yesterday. In [facility], patient showed repetitive behavior and was given Valium and 10 mg diazepam by the nurse at the became unresponsive. In ER, he found to have hypotensive, tachycardia, unresponsive on deep stimuli but was able to protect his own airway by himself with the supplemental 2 L/min oxygen supply nasal cannula by maintaining SpO2 90%. On exam, he was found to have pinpoint pupils along with severe electrolyte imbalances-hypokalemia and hypomagnesemia with normal EKG, and was given Narcan with 2 L of fluid bolus. Once he became consciousness, he showed combative behavior again by pulling all lines, violating to nursing staff, he was given 5 mg of IM Haldol in ER again. Pt stated that "it is illegal to keep me in the hospital and I'd kill myself". Plan Plan # Acute toxic encephalopathy from OD # Acute metabolic acidosis with compensating respiratory alkalosis # Possible Drug Overdose # Polysubstance abuses (methamphetamine and cocaine, benzodiazepine, cannabinoids) 04/13/25: Continue IV fluid replacement -monitor vitals, neurological status, combative behavior -initiated moderate alcohol withdrawal protocol -continue IM haloperidol Q 15 minutes for the combative behavior if it is not controlled with IV diazepam -social media analyst were requested, appreciate it -urine tox screen showed positive amphetamine, benzodiazepine, cocaine, cannabinoids, level salicylates was 0, acetaminophen was low was 7.3, ethyl alcohol<10, pending gabapentin levels. -UA showed trace ketone and WBC 5-10, pending urine culture and sensitivity. -head CT scan W/O IV contrast on 04/12/2025 showed No evidence of acute intracranial hemorrhage, mass effect or hydrocephalus. -RBS around 120s, normal lactic acid -already contacted to the Poison control 04/12/2025:Patient was tachycardic, hypotensive but hemodynamically stable. EKG shows sinus rhythm with no acute abnormalities. Patient is saturating at 92% on 2 L of oxygen. Blood sugar on admission was in the 60s followed by 90s after awhile. One dose of D50 given. Recheck blood sugar in the a.m. Poison control was contacted with no additional recommendations. NPO till he passes swallow test. No indication for intubation as he was able to protect his airway. Ordered serum salicylate, acetaminophen, gabapentin levels. Serum salicylate and acetaminophen, ethyl alcohol are within normal limits. Follow up with gabapentin levels. Patient received one dose of Narcan, 2 L NS bolus of fluids in the ED. UA shows positive amphetamines, cocaine, benzos, cannabinoids. ABG shows a pH of 7.1, pCO2 of 60 and a normal bicarbonate level. RT paged. Breathing treatments with Albuterol q.2h p.r.n. ordered. Patient has no history of COPD, the respiratory acidosis is likely secondary to substance abuse and benzodiazepine toxicity. CT head shows no acute intracranial abnormalities. Blood sugars are within normal limits. Troponin within normal limits Chest x-ray shows no acute changes. Patient agitation can likely be secondary to substance withdrawal. Ordered IM Haldol 5 mg p.r.n. for severe agitation. # severe electrolyte abnormalities-hypernatremia, severe hypokalemia, hyperchloremia, hypomagnesemia # Acute metabolic acidosis with compensating respiratory alkalosis # hyper myoglobinanemia from drugs OD Vs possible OD induced seizure like activity Vs under restrains # elevated BUN creatinine ratio- mostly from dehydration # moderate protein calorie malnutrition # possible apparent hypocalcemia, ionized calcium normal 04/13/2025: Replace electrolytes as required as per protocol -sodium 142, potassium 4.5, chloride 105, anion gap nine, calcium 9.2, magnesium 3.1, phosphorus 5 -continue IV fluids for myoglobinanemia and elevated BUN creatinine ratio >20 from dehydration to prevent KULDIP, current creatinine 0.71 -encourage protein diet, appreciate it -replace calcium as needed only and symptoms monitoring including muscles tetany and spasms -normal lactic acid 04/12/2025: CMP she was critically low potassium of 1.8 and magnesium of 0.8. Started on replacement protocol. However EKG does not show any U waves or QT prolongation. Patient has a serum calcium level of 5.3 however ionized calcium is within normal limits and corrected calcium with albumin is 7. Started on IV calcium chloride 1 g daily. Monitor electrolytes q.4 hours. Patient also has increased serum myoglobin and he is currently on LR at 150 mL/hour. Avoid NS in the view of hyponatremia and hypochloremia. Serum uric acid, TSH, lactic acid, procalcitonin, ESR CRP levels pending. Serum creatinine kinase is within normal limits. # normochromic normocytic anemia 04/13/2025: Most probably from the hemodilution on arrival, today hemoglobin showed 12.6 from yesterday 9.9 -daily CBC monitoring -iron profile showed WNL, pending FOBT -continue ensure and live t.i.d. after passing swallow test 04/12/2025:Albumin is 1.9 and hemoglobin is 9.9. There is no evidence of external bleeding. Likely secondary to hemodilution with IV fluids. Iron studies and FOBT ordered. Follow up. Ensure enlive t.i.d. after passing swallowing test # alcoholic transaminitis # hyperbilirubinemia # moderate protein calorie malnutrition # Alcohol Abuse Hx 04/13/2025: Continue IV fluids, daily monitoring LFT -AST: ALT 2:1, no clinical symptoms of jaundice -initiated moderate alcohol withdrawal protocol with vitamin supplements -control the withdrawal symptoms with IV Ativan as needed as per protocol. # asymptomatic pyuria ( Ruled out UTIs) 04/13/2025: No active symptoms at the moment. -asymptomatic pyuria most probably from the the right substances induced renal tubular necrosis but no evidence of urine casts in the UA 04/12/2025: Patient is not able to provide history about urinary symptoms. Patient has 5-10 urine WBC, no leukocyte esterase or nitrite positive. Have not started on antibiotics yet. Reassess in the a.m. for UTI symptoms CODE STATUS: Full code DVT prophylaxis: Sc heparin 5000 units b.i.d. Analgesia/sedation: Acetaminophen Lines/tubes: Peripheral IV GI prophylaxis: None Nutrition: NPO till swallow test past, regular diet after test Prognosis: Guarded Disposition: Continue medical management with telemetry monitoring especially for electrolyte imbalances, continue IV fluids, social media analyst, PT eval and DC plan. Resident attestation: Patient was seen, examined and discussed with attending , Dr. Valentine DAVILA MD Internal Medicine Resident, PGY2 [facility] Date of Service: April 13, 2025 Billing Provider: CAMMIE DEE MD Common Visit Codes: [id number] INP/OBS CARE(HIGH) KATHRYN DAVILA, RES April 13, 2025 15:20 CAMMIE DEE MD April 13, 2025 20:18
[2025-04-13] MEDS: ringers solution, lacted 1,000 ML IV SCH (17:56)
[2025-04-14] VITALS (9 sets, daily range): BP systolic 103–125; BP diastolic 56–72; PULSE 87–119; RESP 15–26; TEMP 97.9–98.3; O2SAT 95–99
[2025-04-14 06:42] LABS: BASOPHILS # (AUTO) 0.1 X10'3 (0-0.2); BASOPHILS % (AUTO) 0.4 % (0-1); EOSINOPHILS % (AUTO) 0.1 % (0-6); HEMATOCRIT 35.7 % (42.0-52.0); HEMOGLOBIN 12.4 g/dl (14.0-17.9); LYMPHOCYTES # (AUTO) 3.4 X10'3 (1.1-4.8); LYMPHOCYTES % (AUTO) 21.1 % (21-51); MEAN CORPUSCULAR HGB CONC 34.7 g/dL (33.0-36.5); MEAN CORPUSCULAR VOLUME 86.6 FL (78-98); MEAN PLATELET VOLUME 7.8 FL (7.4-10.4); MONOCYTES # (AUTO) 1.1 X10'3 (0-0.9); MONOCYTES % (AUTO) 6.8 % (2-12); NEUTROPHILS # (AUTO) 11.7 X10'3 (1.8-7.7); NEUTROPHILS % (AUTO) 71.6 % (42-75); PLATELET COUNT 273 X10'3 (140-440); RED BLOOD COUNT 4.12 X10'6 (4.70-6.10); RED CELL DISTRIBUTION WIDTH 15.4 % (11.5-14.5); WHITE BLOOD COUNT 16.3 X10'3 (4.5-11.0)
[2025-04-14 07:02] LABS: ALANINE AMINOTRANSFERASE 26 U/L (12-78); ALBUMIN 2.8 G/DL (3.4-5.0); ALBUMIN/GLOBULIN RATIO 0.8 (1.1-1.5); ALKALINE PHOSPHATASE 68 IU/L (20-180); ANION GAP 7 (8-16); ASPARTATE AMINO TRANSFERASE 36 U/L (10-37); BILIRUBIN,TOTAL 1.3 MG/DL (0.1-1.0); BLOOD UREA NITROGEN 7 MG/DL (7-18); CALCIUM 8.4 MG/DL (8.5-10.1); CHLORIDE 100 MMOL/L (99-107); CREATININE 0.78 MG/DL (0.60-1.10); GLUCOSE 103 MG/DL (70-104); PHOSPHORUS 3.3 MG/DL (2.3-4.5); POTASSIUM 3.6 MMOL/L (3.5-5.1); SODIUM 138 MMOL/L (135-145); TOTAL CARBON DIOXIDE 31.1 MMOL/L (24-32); TOTAL PROTEIN 6.2 G/DL (6.4-8.2); eCRCL 92 ML/MIN; eGFR > 90 ML/MIN
[2025-04-14] MEDS: magnesium sulf-water 4G/100mL 100 ML IV PRN (13:20)
--- NOTE | 2025-04-14 14:17 | PROGRESS NOTE- Residence ---
Progress Note - Resident Providers to CC Resident Creating Document: KATHRYN DAVILA RES ~ Antibiotic Timeout Antibiotic Ordered?: No Subjective Patient was sleeping under soft behavior restrain order this morning, but awake and talking appropriately by requesting if he will be able to go home today. Pt's is barely eating much and drinking water a little bit this morning. No other special medical complaint. Yesterday, pt retained urine output upto 700 ml and straight cath was done for one time. Objective Vital Signs Date Time Temp Pulse Resp B/P (MAP) Pulse Ox O2 Delivery O2 Flow Rate FiO2 04/14/25 08:00 18 97 Room Air 04/14/25 06:00 98.1 98 112/68 (83) 04/13/25 05:10 2.0 Result Diagram: 04/14/25 0604/14/25 06 Vitals were stable at the moment. On examination, General: under soft behavior restrain, Well alert, well oriented, not confused, not agitated but irritative by movement, complaining about the generalized body pain, not in acute distress, well cooperated during the physical. HEENT: Conjunctive are pink, sclerae clear, no icterus, pupil is equal in both sides but small, reactive to light, no ear discharge, no pharyngeal erythema or an edema, mouth and lips are moist. Neck: Supple, no JVD, no lymphadenopathy and thyromegaly. Lungs:Equal air entry on both lungs, no additional sounds Heart: S1-S2 regular sinus rhythm and, regular rate, no gallops, no rubs, no murmurs Abdomen: No visible peristalsis, Bowel sounds present on auscultation, soft, nontender, no guarding, no rigidity Extremities: No obvious deformities, no pitting edema bilaterally, capillary refill intact, able to wiggle toes both sides, peripheral pulsations are intact on both sides BACKEND TESTER: Could not assess proper neurological exam since the patient was sleeping deeply, but arousable and awake on stimuli, could move all 4 extremities Musculoskeletal: ABRASION ON CHEST/STERNUM FROM STERNUM RUB REPORTEDLY DONE AT [facility], No joint swelling, deformities, inflammations, and no scoliosis and back tenderness Skin: No active skin lesions and rashes Coagulation Studies Laboratory Tests Test 04/12/25 21:24 Prothrombin Time 11.4 SECONDS (9.0-12.0) INR International Normalized Ratio 1.1 INR Activated Partial Thromboplast Time 28 SECONDS (22-32) Coagulation Comments Assessment Assessment A 19-year-old male with a past medical history of polysubstance abuse including methamphetamine and cocaine, benzodiazepine, cannabinoids who was brought to ED by our PT after a suspected drug overdose with gabapentin as per his girlfriend. Patient was recently visited to ER for medical clearance and was transferred to D yesterday. In [facility], patient showed repetitive behavior and was given Valium and 10 mg diazepam by the nurse at the became unresponsive. In ER, he found to have hypotensive, tachycardia, unresponsive on deep stimuli but was able to protect his own airway by himself with the supplemental 2 L/min oxygen supply nasal cannula by maintaining SpO2 90%. On exam, he was found to have pinpoint pupils along with severe electrolyte imbalances-hypokalemia and hypomagnesemia with normal EKG, and was given Narcan with 2 L of fluid bolus. Once he became consciousness, he showed combative behavior again by pulling all lines, violating to nursing staff, he was given 5 mg of IM Haldol in ER again. Pt stated that "it is illegal to keep me in the hospital and I'd kill myself". Plan Plan # Acute toxic encephalopathy from OD # Acute metabolic acidosis with compensating respiratory alkalosis # Possible Drug Overdose # Polysubstance abuses (methamphetamine and cocaine, benzodiazepine, cannabinoids) 04/14/2025: Patient started resuming oral diet but not much, continue IV fluids ringer lactate with 125 mL/hr, social group worker were requested and appreciate it. -touching to his baseline today, requesting to be released today. 04/13/25: Continue IV fluid replacement -monitor vitals, neurological status, combative behavior -initiated moderate alcohol withdrawal protocol -continue IM haloperidol Q 15 minutes for the combative behavior if it is not controlled with IV diazepam -social group worker were requested, appreciate it -urine tox screen showed positive amphetamine, benzodiazepine, cocaine, cannabinoids, level salicylates was 0, acetaminophen was low was 7.3, ethyl alcohol<10, pending gabapentin levels. -UA showed trace ketone and WBC 5-10, pending urine culture and sensitivity. -head CT scan W/O IV contrast on 04/12/2025 showed No evidence of acute intracranial hemorrhage, mass effect or hydrocephalus. -RBS around 120s, normal lactic acid -already contacted to the Poison control 04/12/2025:Patient was tachycardic, hypotensive but hemodynamically stable. EKG shows sinus rhythm with no acute abnormalities. Patient is saturating at 92% on 2 L of oxygen. Blood sugar on admission was in the 60s followed by 90s after awhile. One dose of D50 given. Recheck blood sugar in the a.m. Poison control was contacted with no additional recommendations. NPO till he passes swallow test. No indication for intubation as he was able to protect his airway. Ordered serum salicylate, acetaminophen, gabapentin levels. Serum salicylate and acetaminophen, ethyl alcohol are within normal limits. Follow up with gabapentin levels. Patient received one dose of Narcan, 2 L NS bolus of fluids in the ED. UA shows positive amphetamines, cocaine, benzos, cannabinoids. ABG shows a pH of 7.1, pCO2 of 60 and a normal bicarbonate level. RT paged. Breathing treatments with Albuterol q.2h p.r.n. ordered. Patient has no history of COPD, the respiratory acidosis is likely secondary to substance abuse and benzodiazepine toxicity. CT head shows no acute intracranial abnormalities. Blood sugars are within normal limits. Troponin within normal limits Chest x-ray shows no acute changes. Patient agitation can likely be secondary to substance withdrawal. Ordered IM Haldol 5 mg p.r.n. for severe agitation. # severe electrolyte abnormalities-hypernatremia, severe hypokalemia, hyperchloremia, hypomagnesemia # Acute metabolic acidosis with compensating respiratory alkalosis-improving # hyper myoglobinanemia from drugs OD Vs possible OD induced seizure like activity Vs under restrains # elevated BUN creatinine ratio- mostly from dehydration-improved # moderate protein calorie malnutrition # possible apparent hypocalcemia, ionized calcium normal 04/14/2025: His serum sodium 138, potassium 3.6, chloride 100, but magnesium is still severely low with one, replace as per protocol accordingly. -his KULDIP is resolved with the touching his baseline creatinine 0.7 today. -corrected calcium level showed 9.4 with serum calcium 8.4 which is apparently low with the low serum albumin anemia 2.8 -encourage protein diet 04/13/2025: Replace electrolytes as required as per protocol -sodium 142, potassium 4.5, chloride 105, anion gap nine, calcium 9.2, magnesium 3.1, phosphorus 5 -continue IV fluids for myoglobinanemia and elevated BUN creatinine ratio >20 from dehydration to prevent KULDIP, current creatinine 0.71 -encourage protein diet, appreciate it -replace calcium as needed only and symptoms monitoring including muscles tetany and spasms -normal lactic acid 04/12/2025: CMP she was critically low potassium of 1.8 and magnesium of 0.8. Started on replacement protocol. However EKG does not show any U waves or QT prolongation. Patient has a serum calcium level of 5.3 however ionized calcium is within normal limits and corrected calcium with albumin is 7. Started on IV calcium chloride 1 g daily. Monitor electrolytes q.4 hours. Patient also has increased serum myoglobin and he is currently on LR at 150 mL/hour. Avoid NS in the view of hyponatremia and hypochloremia. Serum uric acid, TSH, lactic acid, procalcitonin, ESR CRP levels pending. Serum creatinine kinase is within normal limits. # normochromic normocytic anemia 04/14/2025: Nonspecific neutrophilic leukocytosis with WBC 16.3, ESR 16, but normal procalcitonin lactic acid -follow up with repeated blood culture for the possible infection -continuous monitoring -hemoglobin is stabilized around 12 now much different from the previous days. 04/13/2025: Most probably from the hemodilution on arrival, today hemoglobin showed 12.6 from yesterday 9.9 -daily CBC monitoring -iron profile showed WNL, pending FOBT -continue ensure and live t.i.d. after passing swallow test 04/12/2025:Albumin is 1.9 and hemoglobin is 9.9. There is no evidence of external bleeding. Likely secondary to hemodilution with IV fluids. Iron studies and FOBT ordered. Follow up. Ensure enlive t.i.d. after passing swallowing test # alcoholic transaminitis-normalized with IV fluids # hyperbilirubinemia # moderate protein calorie malnutrition # Alcohol Abuse Hx 04/14/2025: Liver enzymes and normalized with the IV fluids, continue IV fluids one 2-5 mm/hr -continuous applying moderate alcohol withdrawal protocol as needed -encourage protein diet 04/13/2025: Continue IV fluids, daily monitoring LFT -AST: ALT 2:1, no clinical symptoms of jaundice -initiated moderate alcohol withdrawal protocol with vitamin supplements -control the withdrawal symptoms with IV Ativan as needed as per protocol. # asymptomatic pyuria ( Ruled out UTIs) 04/14/2025: Patient does not complain about any lower urinary tract symptoms except for the one time acute retention of urine with post residual urine volume 600-700 cc, one time straight catheterization was done. -continue monitoring for the possible UTI in the setting of up trending WBC, elevated ESR -follow blood culture repetition 04/13/2025: No active symptoms at the moment. -asymptomatic pyuria most probably from the the right substances induced renal tubular necrosis but no evidence of urine casts in the UA 04/12/2025: Patient is not able to provide history about urinary symptoms. Patient has 5-10 urine WBC, no leukocyte esterase or nitrite positive. Have not started on antibiotics yet. Reassess in the a.m. for UTI symptoms CODE STATUS: Full code DVT prophylaxis: Sc heparin 5000 units b.i.d. Analgesia/sedation: Acetaminophen Lines/tubes: Peripheral IV GI prophylaxis: None Nutrition: NPO till swallow test past, regular diet after test Prognosis: Guarded Disposition: Continue medical management with telemetry monitoring especially for electrolyte imbalances, continue IV fluids, social group worker, PT eval and DC plan. Resident MD attestation: Patient was seen, examined and discussed with attending MD, Dr. Valentine DAVILA MD Internal Medicine Resident, PGY2 [facility] Date of Service: April 14, 2025 Billing Provider: CAMMIE DEE MD Common Visit Codes: [id number] INP/OBS CARE(HIGH) KATHRYN DAVILA, JESSY April 14, 2025 14:16 CAMMIE DEE MD April 14, 2025 18:13
[2025-04-15 02:00] VITALS: BP 97/60; PULSE 98; RESP 16; TEMP 97.7; O2SAT 98
[2025-04-15 06:00] VITALS: BP 106/63; PULSE 91; RESP 17; TEMP 97.7; O2SAT 98
[2025-04-15 07:47] LABS: BASOPHILS # (AUTO) 0.1 X10'3 (0-0.2); BASOPHILS % (AUTO) 0.6 % (0-1); EOSINOPHILS # (AUTO) 0.1 X10'3 (0-0.9); EOSINOPHILS % (AUTO) 0.6 % (0-6); HEMATOCRIT 35.8 % (42.0-52.0); HEMOGLOBIN 12.4 g/dl (14.0-17.9); LYMPHOCYTES # (AUTO) 2.9 X10'3 (1.1-4.8); MEAN CORPUSCULAR HEMOGLOBIN 30.1 PG (27.0-31.0); MEAN CORPUSCULAR HGB CONC 34.6 g/dL (33.0-36.5); MEAN PLATELET VOLUME 8.4 FL (7.4-10.4); MONOCYTES # (AUTO) 0.7 X10'3 (0-0.9); NEUTROPHILS # (AUTO) 6.5 X10'3 (1.8-7.7); NEUTROPHILS % (AUTO) 63.8 % (42-75); PLATELET COUNT 255 X10'3 (140-440); RED BLOOD COUNT 4.11 X10'6 (4.70-6.10); RED CELL DISTRIBUTION WIDTH 15.4 % (11.5-14.5); WHITE BLOOD COUNT 10.2 X10'3 (4.5-11.0)
[2025-04-15 08:00] VITALS: RESP 17; O2SAT 98
[2025-04-15] MEDS ORDERED: LORazepam 1 MG tablet PO PRN (08:00)
[2025-04-15] MEDS ORDERED: LORazepam 2 mg/ml vial IV PRN (08:00)
[2025-04-15 08:38] LABS: ALANINE AMINOTRANSFERASE 30 U/L (12-78); ALBUMIN 2.8 G/DL (3.4-5.0); ALBUMIN/GLOBULIN RATIO 0.8 (1.1-1.5); ALKALINE PHOSPHATASE 68 IU/L (20-180); ANION GAP 5 (8-16); ASPARTATE AMINO TRANSFERASE 34 U/L (10-37); BILIRUBIN,TOTAL 0.7 MG/DL (0.1-1.0); BLOOD UREA NITROGEN 10 MG/DL (7-18); BUN/CREATININE RATIO 12.5 (10.0-20.0); CALCIUM 8.6 MG/DL (8.5-10.1); CHLORIDE 101 MMOL/L (99-107); GLUCOSE 106 MG/DL (70-104); MAGNESIUM 1.4 MG/DL (1.5-2.4); PHOSPHORUS 3.2 MG/DL (2.3-4.5); POTASSIUM 3.7 MMOL/L (3.5-5.1); SODIUM 139 MMOL/L (135-145); TOTAL CARBON DIOXIDE 33.3 MMOL/L (24-32); TOTAL PROTEIN 6.2 G/DL (6.4-8.2); eCRCL 90 ML/MIN; eGFR > 90 ML/MIN
[2025-04-15 11:00] VITALS: BP 104/59; PULSE 56; RESP 16; TEMP 97.6; O2SAT 100
[2025-04-15] MEDS: magnesium Cl slow-release 64mg tablet PO PRN (11:43)
--- NOTE | 2025-04-15 12:21 | PROGRESS NOTE- Residence ---
Progress Note - Resident Providers to CC Resident Creating Document: KATHRYN DAVILA, RES ~ Antibiotic Timeout Antibiotic Ordered?: No Subjective Patient was communicating really well and answering the questions in could behavior today. Patient was eating and drinking has a regular normal. His parents are at the bedside, Dr. Grijalva explained and discussed in details about the current situation, for the further management plan including psychiatric/psychologic counseling Via PCP referral after released from here. His last bowel movement was yesterday. He is currently under 1799, waiting for the [facility] clearance for discharge since the patient is medically cleared. Objective Vital Signs Date Time Temp Pulse Resp B/P (MAP) Pulse Ox O2 Delivery O2 Flow Rate FiO2 04/15/25 06:00 92 04/15/25 02:00 97.7 16 97/60 (72) 98 Room Air 04/14/25 17:12 0 21 Result Diagram: 04/15/25 0710 04/15/25 0710 Vitals were stable at the moment. On examination, General: under soft behavior restrain, Well alert, well oriented, not confused, not agitated but irritative by movement, complaining about the generalized body pain, not in acute distress, well cooperated during the physical. HEENT: Conjunctive are pink, sclerae clear, no icterus, pupil is equal in both sides but small, reactive to light, no ear discharge, no pharyngeal erythema or an edema, mouth and lips are moist. Neck: Supple, no JVD, no lymphadenopathy and thyromegaly. Lungs:Equal air entry on both lungs, no additional sounds Heart: S1-S2 regular sinus rhythm and, regular rate, no gallops, no rubs, no murmurs Abdomen: No visible peristalsis, Bowel sounds present on auscultation, soft, nontender, no guarding, no rigidity Extremities: No obvious deformities, no pitting edema bilaterally, capillary refill intact, able to wiggle toes both sides, peripheral pulsations are intact on both sides WEIGHT CONTROL LECTURER: Could not assess proper neurological exam since the patient was sleeping deeply, but arousable and awake on stimuli, could move all 4 extremities Musculoskeletal: ABRASION ON CHEST/STERNUM FROM STERNUM RUB REPORTEDLY DONE AT ASSISTED, No joint swelling, deformities, inflammations, and no scoliosis and back tenderness Skin: No active skin lesions and rashes Coagulation Studies Laboratory Tests Test 04/12/25 21:24 Prothrombin Time 11.4 SECONDS (9.0-12.0) INR International Normalized Ratio 1.1 INR Activated Partial Thromboplast Time 28 SECONDS (22-32) Coagulation Comments Assessment Assessment A 19-year-old male with a past medical history of polysubstance abuse including methamphetamine and cocaine, benzodiazepine, cannabinoids who was brought to ED by our PT after a suspected drug overdose with gabapentin as per his girlfriend. Patient was recently visited to ER for medical clearance and was transferred to D yesterday. In [facility], patient showed repetitive behavior and was given Valium and 10 mg diazepam by the nurse at the became unresponsive. In ER, he found to have hypotensive, tachycardia, unresponsive on deep stimuli but was able to protect his own airway by himself with the supplemental 2 L/min oxygen supply nasal cannula by maintaining SpO2 90%. On exam, he was found to have pinpoint pupils along with severe electrolyte imbalances-hypokalemia and hypomagnesemia with normal EKG, and was given Narcan with 2 L of fluid bolus. Once he became consciousness, he showed combative behavior again by pulling all lines, violating to nursing staff, he was given 5 mg of IM Haldol in ER again. Pt stated that "it is illegal to keep me in the hospital and I'd kill myself". Plan Plan # Acute toxic encephalopathy from OD # Acute metabolic acidosis with compensating respiratory alkalosis # Possible Drug Overdose # Polysubstance abuses (methamphetamine and cocaine, benzodiazepine, cannabinoids) 04/15/2025: Continue encouraging oral drinking and eating, encourage hydration, we will consider to stopped IV fluids. -currently under 1799, waiting for county clearance since he was taking drugs and pills intentionally led to OD for discharge plan. 04/14/2025: Patient started resuming oral diet but not much, continue IV fluids ringer lactate with 125 mL/hr, drug abuse social worker were requested and appreciate it. -touching to his baseline today, requesting to be released today. 04/13/25: Continue IV fluid replacement -monitor vitals, neurological status, combative behavior -initiated moderate alcohol withdrawal protocol -continue IM haloperidol Q 15 minutes for the combative behavior if it is not controlled with IV diazepam -drug abuse social worker were requested, appreciate it -urine tox screen showed positive amphetamine, benzodiazepine, cocaine, cannabinoids, level salicylates was 0, acetaminophen was low was 7.3, ethyl alcohol<10, pending gabapentin levels. -UA showed trace ketone and WBC 5-10, pending urine culture and sensitivity. -head CT scan W/O IV contrast on 04/12/2025 showed No evidence of acute intracranial hemorrhage, mass effect or hydrocephalus. -RBS around 120s, normal lactic acid -already contacted to the Poison control 04/12/2025:Patient was tachycardic, hypotensive but hemodynamically stable. EKG shows sinus rhythm with no acute abnormalities. Patient is saturating at 92% on 2 L of oxygen. Blood sugar on admission was in the 60s followed by 90s after awhile. One dose of D50 given. Recheck blood sugar in the a.m. Poison control was contacted with no additional recommendations. NPO till he passes swallow test. No indication for intubation as he was able to protect his airway. Ordered serum salicylate, acetaminophen, gabapentin levels. Serum salicylate and acetaminophen, ethyl alcohol are within normal limits. Follow up with gabapentin levels. Patient received one dose of Narcan, 2 L NS bolus of fluids in the ED. UA shows positive amphetamines, cocaine, benzos, cannabinoids. ABG shows a pH of 7.1, pCO2 of 60 and a normal bicarbonate level. RT paged. Breathing treatments with Albuterol q.2h p.r.n. ordered. Patient has no history of COPD, the respiratory acidosis is likely secondary to substance abuse and benzodiazepine toxicity. CT head shows no acute intracranial abnormalities. Blood sugars are within normal limits. Troponin within normal limits Chest x-ray shows no acute changes. Patient agitation can likely be secondary to substance withdrawal. Ordered IM Haldol 5 mg p.r.n. for severe agitation. # severe electrolyte abnormalities-hypernatremia, severe hypokalemia, hyperchloremia, hypomagnesemia # Acute metabolic acidosis with compensating respiratory alkalosis-improving # hyper myoglobinanemia from drugs OD Vs possible OD induced seizure like activity Vs under restrains # elevated BUN creatinine ratio- mostly from dehydration-improved # moderate protein calorie malnutrition # possible apparent hypocalcemia, ionized calcium normal 03/26/2025: Electrolytes were within normal today, please replace as per protocol if it is necessary. A haresh is improved already, optimize hydration. 04/14/2025: His serum sodium 138, potassium 3.6, chloride 100, but magnesium is still severely low with one, replace as per protocol accordingly. -his KULDIP is resolved with the touching his baseline creatinine 0.7 today. -corrected calcium level showed 9.4 with serum calcium 8.4 which is apparently low with the low serum albumin anemia 2.8 -encourage protein diet 04/13/2025: Replace electrolytes as required as per protocol -sodium 142, potassium 4.5, chloride 105, anion gap nine, calcium 9.2, magnesium 3.1, phosphorus 5 -continue IV fluids for myoglobinanemia and elevated BUN creatinine ratio >20 from dehydration to prevent KULDIP, current creatinine 0.71 -encourage protein diet, appreciate it -replace calcium as needed only and symptoms monitoring including muscles tetany and spasms -normal lactic acid 04/12/2025: CMP she was critically low potassium of 1.8 and magnesium of 0.8. Started on replacement protocol. However EKG does not show any U waves or QT prolongation. Patient has a serum calcium level of 5.3 however ionized calcium is within normal limits and corrected calcium with albumin is 7. Started on IV calcium chloride 1 g daily. Monitor electrolytes q.4 hours. Patient also has increased serum myoglobin and he is currently on LR at 150 mL/hour. Avoid NS in the view of hyponatremia and hypochloremia. Serum uric acid, TSH, lactic acid, procalcitonin, ESR CRP levels pending. Serum creatinine kinase is within normal limits. # normochromic normocytic anemia 04/14/2025: Nonspecific neutrophilic leukocytosis with WBC 16.3, ESR 16, but normal procalcitonin lactic acid -follow up with repeated blood culture for the possible infection -continuous monitoring -hemoglobin is stabilized around 12 now much different from the previous days. 04/13/2025: Most probably from the hemodilution on arrival, today hemoglobin showed 12.6 from yesterday 9.9 -daily CBC monitoring -iron profile showed WNL, pending FOBT -continue ensure and live t.i.d. after passing swallow test 04/12/2025:Albumin is 1.9 and hemoglobin is 9.9. There is no evidence of external bleeding. Likely secondary to hemodilution with IV fluids. Iron studies and FOBT ordered. Follow up. Ensure enlive t.i.d. after passing swallowing test # alcoholic transaminitis-normalized with IV fluids # hyperbilirubinemia # moderate protein calorie malnutrition # Alcohol Abuse Hx 04/14/2025: Liver enzymes are normalized with the IV fluids, continue IV fluids one 2-5 mm/hr -continuous applying moderate alcohol withdrawal protocol as needed -encourage protein diet 04/13/2025: Continue IV fluids, daily monitoring LFT -AST: ALT 2:1, no clinical symptoms of jaundice -initiated moderate alcohol withdrawal protocol with vitamin supplements -control the withdrawal symptoms with IV Ativan as needed as per protocol. # asymptomatic pyuria ( Ruled out UTIs) 04/15/2025: Patient does not complain about any other LUTI symptoms, not necessary for antibiotics therapy for his asymptomatic pyuria which could possibly from the substance OD. 04/14/2025: Patient does not complain about any lower urinary tract symptoms except for the one time acute retention of urine with post residual urine volume 600-700 cc, one time straight catheterization was done. -continue monitoring for the possible UTI in the setting of up trending WBC, elevated ESR -follow blood culture repetition 04/13/2025: No active symptoms at the moment. -asymptomatic pyuria most probably from the the right substances induced renal tubular necrosis but no evidence of urine casts in the UA 04/12/2025: Patient is not able to provide history about urinary symptoms. Patient has 5-10 urine WBC, no leukocyte esterase or nitrite positive. Have not started on antibiotics yet. Reassess in the a.m. for UTI symptoms CODE STATUS: Full code DVT prophylaxis: Sc heparin 5000 units b.i.d. Analgesia/sedation: Acetaminophen Lines/tubes: Peripheral IV GI prophylaxis: None Nutrition: regular diet Prognosis: Guarded Disposition: PATIENT IS MEDICALLY CLEARED TO GET MENTAL HEALTH EVALUATION (UNDER 1799) FOR INTENTIONAL TAKING DRUGS AND PILLS, plan to BE EVALUATED BY THE [facility]. Continue medical management, monitor electrolyte imbalances, continue IV fluids, drug abuse social worker, PT eval and DC plan. Resident MD attestation: Patient was seen, examined and discussed with attending MD, Dr. Valentine DAVILA MD Internal Medicine Resident, PGY2 [facility] Date of Service: April 15, 2025 Billing Provider: CAMMIE GRIJALVA MD, TIN, RES April 15, 2025 12:21
[2025-04-15 12:33] VITALS: PULSE 96; RESP 18; O2SAT 98
[2025-04-15 15:00] VITALS: BP 106/52; PULSE 92; RESP 25; TEMP 97.7; O2SAT 97
--- NOTE | 2025-04-15 16:32 | DISCHARGE SUMMARY-Residence ---
Discharge Summary Providers to CC Resident Creating Document: GIOVANNIJESSY PERALTA ~ Discharge Summary Admission Diagnosis: Drug overdose Hospital Course DATE OF ADMISSION: 04/12/2025 DATE OF DISCHARGE: 04/15/2025 Discharge Diagnosis\\Comment: # Acute toxic encephalopathy from OD - resolved # Acute metabolic acidosis with compensating respiratory alkalosis - normalized # Possible Drug Overdose- pending Gabapentin levels, cleared 1798 # Polysubstance abuses (methamphetamine and cocaine, benzodiazepine, cannabinoids) # severe electrolyte abnormalities-hypernatremia, severe hypokalemia, hyperchloremia, hypomagnesemia- resolved # hyper myoglobinanemia from drugs OD - resolved with IV Fluid # moderate protein calorie malnutrition # Apparent hypocalcemia, ionized calcium normal # normochromic normocytic anemia # alcoholic transaminitis-normalized with IV fluids # Alcohol Abuse Hx # asymptomatic pyuria ( Ruled out UTIs) Operations\\Procedures: None Consultants: [facility] clearance for 1798 Complications: None Condition on DC: Stable Discharge Summary: A 19-year-old male with a past medical history of polysubstance abuse including methamphetamine and cocaine, benzodiazepine, cannabinoids who was brought to ED by our PT after a suspected drug overdose with gabapentin as per his girlfriend. Patient was recently visited to ER for medical clearance and was transferred to [facility] yesterday. In [facility], patient showed repetitive behavior and was given Valium and 10 mg diazepam by the nurse at the became unresponsive. In ER, he found to have hypotensive, tachycardia, unresponsive on deep stimuli but was able to protect his own airway by himself with the supplemental 2 L/min oxygen supply nasal cannula by maintaining SpO2 90%. On exam, he was found to have pinpoint pupils along with severe electrolyte imbalances-hypokalemia and hypomagnesemia with normal EKG, and was given Narcan with 2 L of fluid bolus. Once he became consciousness, he showed combative behavior again by pulling all lines, violating to nursing staff, he was given 5 mg of IM Haldol in ER again. Pt stated that "it is illegal to keep me in the hospital and I'd kill myself". Hospital course: Patient was admitted to the hospital floor for his possible drug overdosage in the setting of polysubstance abuse history and positive urine toxicology led to acute toxic encephalopathy and combative behavior to the hospital staff. He was given IV LR fluid replacement with 150 ml/hr. His urine tox screen showed positive amphetamine, benzodiazepine, cocaine, cannabinoids, level salicylates was 0, acetaminophen was low was 7.3, ethyl alcohol<10, pending gabapentin levels. UA showed trace ketone and WBC 5-10, pending urine culture and sensitivity. His head CT scan W/O IV contrast on 04/12/2025 showed No evidence of acute intracranial hemorrhage, mass effect or hydrocephalus. His RBS around 120s, normal lactic acid for his encephalopathy. We contacted to the Poison control center and recommended to monitor toxic levels and continue IV fluids. For His combative behavior, he was given IM haloperidol Q 15 minutes as needed. In the background history of alcohol abuse, the moderate alcohol withdrawal protocol was initiated during hospitalization including IV Ativan for his withdrawal and agitative behavior. early childhood services coordinator were requested for including his mental issues-anxiety depression and polysubstance abuses. Patient was encouraged to resume oral diet and optimal hydration while he was awake from sedation. He was hold under daily 1798 for the intentional substance/drugs overdose and abuse history, and provided with 24/7 sitter during his stay. On day of discharge, [facility] came to lift 1799 up and cleared him to released from the hospital after he is medically cleared today. For his electrolyte imbalances-critically low potassium 1.8, magnesium 0.8 on admission without having any EKG changes along with apparently serum calcium level low with a 5.3 and ionized calcium is within normal due to hypoalbuminemia, provided the patient's electrolytes replacement with protocol throughout the stay. He walked with PT evaluation and recommended to discharge home without assistance. DVT prophylaxis was achieved with sc heparin 5000 units b.i.d. during hos pitalization. Today, all of his labs were reviewed showing WBC 10.2, hemoglobin 12.4, hematocrit 35.8, platelet count 255, serum sodium 139, potassium 3.7, chloride 101, creatinine 0.8, magnesium 1.4 , calcium 8.6, and normal liver function tests. All of the patient's and parent's concern and questions were answered and addressed with the best knowledge of our team before he was discharged. Patient has not taking any regular medications and we will not discharge the patient with any medications except for the some advice on discharge. All of his vitals were stable at the moment with temp 97.7 F, IL 98/minute, RR 16/minute, BP 103/56 mm Hg, pulse oximetry 97% on room air. On exam, General: under soft behavior restrain, Well alert, well oriented, not confused, not agitated but irritative by movement, complaining about the generalized body pain, not in acute distress, well cooperated during the physical. HEENT: Conjunctive are pink, sclerae clear, no icterus, pupil is equal in both sides but small, reactive to light, no ear discharge, no pharyngeal erythema or an edema, mouth and lips are moist. Neck: Supple, no JVD, no lymphadenopathy and thyromegaly. Lungs:Equal air entry on both lungs, no additional sounds Heart: S1-S2 regular sinus rhythm and, regular rate, no gallops, no rubs, no murmurs Abdomen: No visible peristalsis, Bowel sounds present on auscultation, soft, nontender, no guarding, no rigidity Extremities: No obvious deformities, no pitting edema bilaterally, capillary refill intact, able to wiggle toes both sides, peripheral pulsations are intact on both sides ASSISTANT TEACHING PROFESSOR: Could not assess proper neurological exam since the patient was sleeping deeply, but arousable and awake on stimuli, could move all 4 extremities Musculoskeletal: ABRASION ON CHEST/STERNUM FROM STERNUM RUB REPORTEDLY DONE AT SNF, No joint swelling, deformities, inflammations, and no scoliosis and back tenderness Skin: No active skin lesions and rashes Discharge instructions: - return to the ER for any emergency including any Overdosage of substances, combative behavior etc -strongly encourgaed and discussed with the patient and family with the possible substance abuse problems, plan for cutting off with the help of PCP and suggested to go with the Psych or psycology counselling for his substance abuse and any other mental issues as well before discharge -Healthy active lifestyle with the life goal orientated active life style were recommended -Continue with the optimal hydration status -Healthy diet and moderate exercise Resident MD attestation: Patient was seen, examined and discussed with attending MD, Dr. Valentine DAVILA MD Internal Medicine Resident, PGY2 [facility] *Problems/Diagnosis: (1) Altered level of consciousness Status: Resolved (2) Polysubstance abuse Status: Chronic Total Time Spent on D/C: > 30 Minutes Counseling Services Smoking & Tobacco Cessation: 3-10 Minutes Date of Service: April 15, 2025 Billing Provider: CAMMIE DEE MD Common Visit Codes: 39728-FRI/OBS DISCH DAY >30min KATHRYN DAVILA, RES April 15, 2025 16:31 CAMMIE DEE MD April 15, 2025 17:20
[2025-04-16 17:13] LABS: GABAPENTIN, SERUM 12.4 ug/mL (4.0-16.0)
[2025-04-17] MEDS ORDERED: LORazepam 2 mg/ml vial IV PRN (08:00)
[2025-04-17] MEDS ORDERED: LORazepam 1 MG tablet PO PRN (08:00)
== END 2025-04-15 17:42 | disposition home or self-care (01) | DRG 812 ==
LOC: ER 17:45 → EEVIPCON 20:49 → ED HOLD 20:49 → PCU 3S 04-13 07:12
PROVIDERS: ADMIT Internal Medicine; ATTEND Internal Medicine
DX: T42.6X1A Poisoning by other antiepileptic and sedative-hypnotic drugs, accidental (unintentional), initial encounter (principal); G92.9 Unspecified toxic encephalopathy; E44.0 Moderate protein-calorie malnutrition; E87.0 Hyperosmolality and hypernatremia; E87.29 Other acidosis; E83.51 Hypocalcemia; E87.6 Hypokalemia; E83.42 Hypomagnesemia; E86.0 Dehydration; E16.2 Hypoglycemia, unspecified; F15.10 Other stimulant abuse, uncomplicated; F14.10 Cocaine abuse, uncomplicated; T42.4X5A Adverse effect of benzodiazepines, initial encounter; F23 Brief psychotic disorder; E87.8 Other disorders of electrolyte and fluid balance, not elsewhere classified; E88.09 Other disorders of plasma-protein metabolism, not elsewhere classified; D64.9 Anemia, unspecified; E87.4 Mixed disorder of acid-base balance; Z68.1 Body mass index [BMI] 19.9 or less, adult; Y92.89 Other specified places as the place of occurrence of the external cause
CPT/HCPCS: 36415; 70450; 71045; 80048; 80053; 80076; 80305; 80320; 80329; 81001; 82330; 82550; 82728; 82800; 82948; 83540; 83550; 83605; 83735; 83874; 84100; 84145; 84466; 84484; 84550; 85025; 85610; 85651; 85730; 86140; 87040; 87081; 87088; 93005; 94760; 96365; 96367; 96372; 96375; 97116; 97161; 97530; 99285; A4615; A4620; A6590; C1758; G0378; J1630; J1644; J2310; J3411; J3475; J3480; J3490; J7030; J7040; J7120